=== PATIENT | female | born 1975 | race Asian ===

== ENCOUNTER 2020-09-01 18:38 | Emergency (ER) | payer BC ==
[~2020-09-01] VITALS: Ht 175.3 cm; Wt 83.9 kg
[~2020-09-01 18:38] MED LIST: AMOX500C85 PO; MEDROL DOSEPAK4 MG OR
[2020-09-01 19:58] VITALS: BP 140/88; TEMP 98.3
== END 2020-09-01 19:58 | disposition home or self-care (01) ==
LOC: ED 18:38
PROC: 2W3CX1Z Immobilization of Right Lower Arm using Splint (ICD-10-PCS; principal; 2020-09-01)
DX: S63.591A Other specified sprain of right wrist, initial encounter (principal); X50.9XXA Other and unspecified overexertion or strenuous movements or postures, initial encounter; Y92.89 Other specified places as the place of occurrence of the external cause
CPT/HCPCS: 96372; 99283; J1885